=== PATIENT | female | born 1950 | race Caucasian/White ===

== ENCOUNTER 2018-07-21 12:14 | Emergency (ER) | payer MEDICARE ==
[2018-07-21] MEDS ORDERED: Acetaminophen / Codeine* #3 (300 MG/30 MG) TAB PO ONE (13:00)
--- NOTE | 2018-07-21 13:00 | ED ---
Upper Extremity Pain - HPI Summary HPI Summary: 67 year old F presenting to [facility] accompanied by family member with a chief complaint of left shoulder pain s/p tripping over tree stump, landing on her left side, hitting her left side on gravel parking lot last night after which she states she needed help getting up. The patient rates the pain 10/10 in severity. Symptoms aggravated by nothing. Symptoms alleviated by nothing. Patient reports left-sided rib pain. Patient reports mid-sternal chest pain. Last night, patient had headache, diaphoresis, and fever but these have since resolved. Patient denies left lower extremity and left hip pain. She denies loss of consciousness. She denies nausea, confusion, disorientation. 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 - History of Current Complaint Chief Complaint: EDExtremityUpper Stated Complaint: FALL SHOULER INJURY Time Seen by Provider: 07/21/18 12:52 Hx Obtained From: Patient Mechanism Of Injury: Other - tripping over tree stump, landing on her left side , hitting her left side on gravel parking lot last night after which she states she needed help getting up Onset/Duration: Started Days Ago - 1, Still Present Timing: Constant Severity Currently: Severe Pain Location: Other: - left shoulder, left rib, mid-sternal chest Aggravating Factor(s): Nothing Alleviating Factor(s): Nothing Associated Signs & Symptoms: Positive: Other - left-sided rib pain, mid-sternal chest pain; NEGATIVE: left lower extremity and left hip pain, loss of consciousness, nausea, confusion, disorientation - Allergies/Home Medications Allergies/Adverse Reactions: Allergies Allergy/AdvReac Type Severity Reaction Status Date / Time bupropion Allergy Palpitation Verified 07/21/18 12:22 s celecoxib Allergy Hives Verified 07/21/18 12:22 meperidine Allergy GI Upset Verified 07/21/18 12:22 rofecoxib Allergy Hives Verified 07/21/18 12:22 PMH/Surg Hx/FS Hx/Imm Hx Previously Healthy: No Endocrine/Hematology History: Reports: Hx Diabetes Cardiovascular History: Reports: Hx Hypertension - meds Respiratory History: Reports: Hx Sleep Apnea Denies: Hx Asthma GI History: Reports: Hx Gastroesophageal Reflux Disease Musculoskeletal History: Reports: Hx Arthritis - RA, Hx Orthopedic Injury - ( right) shoulder/elbow fx Denies: Hx Osteoporosis Sensory History: Reports: Hx Contacts or Glasses - BOTH Denies: Hx Hearing Aid Opthamlomology History: Reports: Hx Contacts or Glasses - BOTH Psychiatric History: Reports: Hx Anxiety, Hx Depression - Cancer History Hx Chemotherapy: No Hx Radiation Therapy: No - Surgical History Surgery Procedure, Year, and Place: APPY, CHOLECYSTECTOMY 1978, LUNG BENIGN TUMOR REMOVED 1971, RIGHT ELBOW AND SHOULDER SX 2006 [facility] Hx Anesthesia Reactions: No Infectious Disease History: No Infectious Disease History: Denies: Traveled Outside the [place] in Last 30 Days - Social History Alcohol Use: Occasionally Hx Substance Use: Yes Substance Use Type: Reports: Other - Xanax PRN anxiety Hx Tobacco Use: No Smoking Status (MU): Never Smoked Tobacco Have You Smoked in the Last Year: No Review of Systems Negative: Nausea Musculoskeletal: Negative - left lower extremity and left hip pain Positive: Other - left shoulder pain, left-sided rib pain, mid-sternal chest pain Neurological: Negative - loss of consciousness, confusion, disorientation All Other Systems Reviewed And Are Negative: Yes Physical Exam - Summary Physical Exam Summary: Appearance: Well-appearing, Well-nourished, lying in bed comfortable Skin: Warm, dry, no obvious rash Eyes: sclera anicteric, no conjunctival pallor ENT: mucous membranes moist Neck: deferred Respiratory: No signs of respiratory distress Cardiovascular: Appears well perfused, pulses are nml Abdomen: deferred Musculoskeletal: There is tenderness in the lower cervical spine and upper back. There is tenderness in the left shoulder with marked and limited ROM due to pain. The tenderness extends down the left arm and to the left elbow. The patient is unable to flex her left elbow without significant pain. There is no focal point tenderness in the chest. Neurological: Awake and alert, mentation is normal, speech is fluent and appropriate Psychiatric: affect is normal, does not appear anxious or depressed Triage Information Reviewed: Yes Vital Signs On Initial Exam: Initial Vitals Temp Pulse Resp BP Pulse Ox 99.4 F 93 16 154/91 95 07/21/18 12:15 07/21/18 12:15 07/21/18 12:15 07/21/18 12:15 07/21/18 12:15 Vital Signs Reviewed: Yes Diagnostics - Vital Signs Vital Signs Temp Pulse Resp BP Pulse Ox 07/21/18 12:15 99.4 F 93 16 154/91 95 - Laboratory Lab Statement: Any lab studies that have been ordered have been reviewed, and results considered in the medical decision making process. - Radiology Left shouler x-ray Radiology Interpretation Completed By: Radiologist Summary of Radiographic Findings: FRACTURE OF THE PROXIMAL LEFT HUMERUS. ED physician has reviewed this report. Left elbow x-ray Radiology Interpretation Completed By: Radiologist Summary of Radiographic Findings: WHILE THERE IS NO DISPLACED FRACTURE, THERE IS A SMALL JOINT EFFUSION. GIVEN THE HISTORY OF TRAUMA, THIS MAY INDICATE OCCULT FRACTURE. ED physician has reviewed this report. Left ribs with chest x-ray Radiology Interpretation Completed By: Radiologist Summary of Radiographic Findings: MINIMALLY DISPLACED FRACTURES OF THE LEFT FIFTH AND SIXTH RIBS WITHOUT APPRECIABLE PNEUMOTHORAX. ED physician has reviewed this report. - CT Cervical spine CT Interpretation Completed By: Radiologist Summary of CT Findings: DEGENERATIVE DISC DISEASE AND OSTEOARTHRITIS. NO ACUTE OSSEOUS INJURY TO THE CERVICAL SPINE. ED physician has reviewed this report. Re-Evaluation - Re-Evaluation First Eval Re-Evaluation Time: 14:33 Comment: Patient was given an update on her scan results Second Eval Re-Evaluation Time: 15:45 Comment: Discussed disposition plan with patient. She is agreeable to discharge. Course/Dx - Course Course Of Treatment: 67 year old F presenting to [facility] accompanied by family member with a chief complaint of left shoulder pain s/p tripping over tree stump , landing on her left side, hitting her left side on gravel parking lot last night after which she states she needed help getting up. The patient rates the pain 10/10 in severity. Symptoms aggravated by nothing. Symptoms alleviated by nothing. Patient reports left-sided rib pain. Patient reports mid-sternal chest pain. Last night, patient had headache, diaphoresis, and fever but these have since resolved. Patient denies left lower extremity and left hip pain. She denies loss of consciousness. She denies nausea, confusion, disorientation. 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 Physical exam findings: There is tenderness in the lower cervical spine and upper back. There is tenderness in the left shoulder with marked and limited ROM due to pain. The tenderness extends down the left arm and to the left elbow. The patient is unable to flex her left elbow without significant pain. There is no focal point tenderness in the chest. Left shoulder x-ray reveals, per radiologist, FRACTURE OF THE PROXIMAL LEFT HUMERUS. Left elbow x-ray reveals, per radiologist, WHILE THERE IS NO DISPLACED FRACTURE, THERE IS A SMALL JOINT EFFUSION. GIVEN THE HISTORY OF TRAUMA, THIS MAY INDICATE OCCULT FRACTURE. Left ribs with chest x-ray reveals, per radiologist, MINIMALLY DISPLACED FRACTURES OF THE LEFT FIFTH AND SIXTH RIBS WITHOUT APPRECIABLE PNEUMOTHORAX. CT Cervical spine reveals, per radiologist, DEGENERATIVE DISC DISEASE AND OSTEOARTHRITIS. NO ACUTE OSSEOUS INJURY TO THE CERVICAL SPINE. In the ED course, the patient was given Tylenol/Codeine. Patient will be discharged with follow up from Dr. Flynn, primary care provider , in 1 week. The patient is agreeable with this plan. - Diagnoses Provider Diagnoses: Proximal humeral fracture, Left rib fracture Discharge - Sign-Out/Discharge Documenting (check all that apply): Patient Departure - Discharge Patient Received Moderate/Deep Sedation with Procedure: No - Discharge Plan Condition: Good Disposition: HOME Prescriptions: oxyCODONE/Acetamin 5/325 MG* [Percocet 5/325 TAB*] 1 tab PO Q4H PRN #20 tab MDD 6 PRN Reason: Pain Patient Education Materials: Rib Fracture (ED), Fall Prevention for Older Adults (ED), Proximal Humerus Fracture (ED) Referrals: Fabio Flynn MD [Primary Care Provider] - 1 Week (if not feeling better) - Billing Disposition and Condition Condition: GOOD Disposition: Home - Attestation Statements Document Initiated by Richy: Yes Documenting Scribe: Sandra Moreno Provider For Whom Richy is Documenting (Include Credential): Royal Wolfe MD Scribe Attestation: Sandra Tamayo, scribed for Royal Wolfe MD on 07/21/18 at 2201. Scribe Documentation Reviewed: Yes Provider Attestation: The documentation as recorded by the Sandra gallardo accurately reflects the service I personally performed and the decisions made by me, Royal Wolfe MD Status of Scribe Document: Viewed
[2018-07-21 15:48] VITALS: BP 116/76
== END 2018-07-21 15:46 | disposition home or self-care (01) ==
LOC: ED 12:14
DX: S42.212A Unspecified displaced fracture of surgical neck of left humerus, initial encounter for closed fracture (principal); S22.42XA Multiple fractures of ribs, left side, initial encounter for closed fracture; M25.422 Effusion, left elbow; W18.09XA Striking against other object with subsequent fall, initial encounter; Y92.481 Parking lot as the place of occurrence of the external cause; M50.30 Other cervical disc degeneration, unspecified cervical region; M47.812 Spondylosis without myelopathy or radiculopathy, cervical region; E11.9 Type 2 diabetes mellitus without complications; I10 Essential (primary) hypertension; M06.9 Rheumatoid arthritis, unspecified; F41.9 Anxiety disorder, unspecified; Z88.5 Allergy status to narcotic agent; Z88.8 Allergy status to other drugs, medicaments and biological substances
CPT/HCPCS: 72125; 99282; A9270-GY

== ENCOUNTER 2024-01-01 00:35 | Observation (INO) ==
[2024-01-01] MEDS: methylPREDNISolone SOD SUCC 125 mg 2 ML VIAL IV ONE (00:51)
[2024-01-01] MEDS: EPINEPHrine Anaphylaxis SYR CERTADOSE SYR KIT IM ONE (01:03)
[2024-01-01] MEDS: Lactated Ringers 1000 ml BAG 1,000 ML IV ONE (01:06)
[2024-01-01 01:21] LABS: ABS Basophils 0.1 10^3/uL (0.0-0.1); ABS Eosinophils 0.4 10^3/uL (0.0-0.5); ABS Lymphocytes 4.8 10^3/uL (1.0-4.8); ABS Neutrophils 6.4 10^3/uL (1.5-7.6); ABS Nucleated RBC 0.02 10^3/ul; Eosinophil % 3.1 %; Hematocrit 43.2 % (35-45); Hemoglobin 14.8 g/dL (11.5-14.3); Mean Corpuscular Hemoglobin 30.5 pg (27-33); Mean Corpuscular Hgb Conc 34.4 g/dL (31-36); Mean Corpuscular Volume 88.7 fL (80-97); Mean Platelet Volume 8.5 fL (7.5-11.2); Nucleated Red Blood Cells % 0.1 %/100WBC (0.0-0.8); Platelet Count 315 10^3/uL (150-450); Red Blood Count 4.86 10^6/uL (3.63-4.92); Red Cell Distribution Width 14.9 % (12-17); White Blood Count 12.7 10^3/uL (3.8-11.8)
[2024-01-01] MEDS: Glycopyrrolate IV 0.2 MG/ML 1 ML VIAL IV SLOW PU ONE (01:31)
[2024-01-01 02:02] LABS: ALT 21 U/L (7-52); Albumin 4.2 g/dL (3.2-5.2); Albumin/Globulin Ratio 1.5 (1-3); Alkaline Phosphatase 60 U/L (35-149); Anion Gap 10 mmol/L (2-16); Blood Urea Nitrogen 15 mg/dL (6-24); CO2 Carbon Dioxide 29 mmol/L (22-32); Calcium 9.4 mg/dL (8.6-10.3); Chloride 99 mmol/L (101-111); Globulin 2.8 g/dL (2-4); Glucose 104 mg/dL (70-100); Sodium 138 mmol/L (135-145); Total Bilirubin 0.7 mg/dL (0.2-1.0); eGFR CKD-EPI 58.8 (>60)
[2024-01-01] MEDS: Benzocaine/Butamben/Tetracain (CETACAINE - SINGLE USE) 5 gm TOPICAL ONE (05:14)
[2024-01-01] MEDS ORDERED: Dextrose 50% Syringe 50 ml 25 GM/50 ML SYRINGE IV PUSH PRN (05:20)
[2024-01-01] MEDS: Enoxaparin 40 MG/0.4 ML SYR SUBCUT SCH (06:32)
[2024-01-01 08:50] LABS: Hematocrit 39.4 % (35-45); Hemoglobin 13.5 g/dL (11.5-14.3); Mean Corpuscular Hemoglobin 30.1 pg (27-33); Mean Corpuscular Hgb Conc 34.3 g/dL (31-36); Mean Corpuscular Volume 87.8 fL (80-97); Platelet Count 242 10^3/uL (150-450); Red Blood Count 4.48 10^6/uL (3.63-4.92); Red Cell Distribution Width 14.6 % (12-17); White Blood Count 7.8 10^3/uL (3.8-11.8)
[2024-01-01 09:22] LABS: Calcium 9.3 mg/dL (8.6-10.3); Creatinine, Serum 0.88 mg/dL (0.51-0.95); Magnesium 1.8 mg/dL (1.9-2.7); Potassium 3.9 mmol/L (3.5-5.0); Potassium Redraw 3.8 mmol/L (3.5-5.0); eGFR CKD-EPI 68.5 (>60)
[2024-01-01] MEDS: Lactated Ringers 1000 ml BAG 1,000 ML IV SCH (10:12)
[2024-01-01] MEDS: Pantoprazole VIAL 40 MG VIAL IV SCH (10:14)
[2024-01-01] MEDS: Benzocaine/Menthol LOZ MT PRN (18:02)
[2024-01-02 09:27] LABS: Hematocrit 41.3 % (35-45); Hemoglobin 13.9 g/dL (11.5-14.3); Mean Corpuscular Hemoglobin 30.1 pg (27-33); Mean Corpuscular Hgb Conc 33.7 g/dL (31-36); Mean Corpuscular Volume 89.2 fL (80-97); Red Blood Count 4.63 10^6/uL (3.63-4.92); Red Cell Distribution Width 14.8 % (12-17); White Blood Count 12.6 10^3/uL (3.8-11.8)
[2024-01-02 09:43] LABS: Anion Gap 11 mmol/L (2-16); Blood Urea Nitrogen 18 mg/dL (6-24); CO2 Carbon Dioxide 27 mmol/L (22-32); Calcium 9.9 mg/dL (8.6-10.3); Chloride 102 mmol/L (101-111); Creatinine, Serum 0.95 mg/dL (0.51-0.95); Glucose 95 mg/dL (70-100); Magnesium 1.9 mg/dL (1.9-2.7); Sodium 140 mmol/L (135-145); eGFR CKD-EPI 62.5 (>60)
[2024-01-02 10:31] LABS: ABS Basophils 0.2 10^3/uL (0.0-0.1); ABS Eosinophils 0.2 10^3/uL (0.0-0.5); ABS Neutrophils 7.3 10^3/uL (1.5-7.6); ABS Nucleated RBC 0.01 10^3/ul; Eosinophil % 1.5 %; Lymphocyte % 31.6 %; Mean Platelet Volume 8.7 fL (7.5-11.2); Nucleated Red Blood Cells % 0.1 %/100WBC (0.0-0.8); Platelet Count 233 10^3/uL (150-450)
[2024-01-03 06:00] LABS: ABS Eosinophils 0.1 10^3/uL (0.0-0.5); ABS Lymphocytes 2.7 10^3/uL (1.0-4.8); ABS Monocytes 0.7 10^3/uL (0.0-0.9); ABS Neutrophils 5.8 10^3/uL (1.5-7.6); Eosinophil % 0.8 %; Hematocrit 36.4 % (35-45); Hemoglobin 12.4 g/dL (11.5-14.3); Lymphocyte % 28.9 %; Mean Corpuscular Hemoglobin 30.3 pg (27-33); Mean Corpuscular Hgb Conc 33.9 g/dL (31-36); Mean Corpuscular Volume 89.2 fL (80-97); Mean Platelet Volume 8.7 fL (7.5-11.2); Platelet Count 227 10^3/uL (150-450); Red Blood Count 4.08 10^6/uL (3.63-4.92); Red Cell Distribution Width 14.4 % (12-17); White Blood Count 9.4 10^3/uL (3.8-11.8)
[2024-01-03 06:20] LABS: Calcium 9.2 mg/dL (8.6-10.3); Creatinine, Serum 0.92 mg/dL (0.51-0.95); Magnesium 1.8 mg/dL (1.9-2.7); Potassium 4.1 mmol/L (3.5-5.0); eGFR CKD-EPI 64.9 (>60)
[2024-01-03] MEDS: Magnesium Sulfate 2 gm BAG 2 GM/50 ML BAG IVPB ONE (09:01)
[2024-01-03 13:30] VITALS: BP 110/68
== END 2024-01-03 16:00 | disposition home or self-care (01) ==
LOC: ED 00:35 → EDHOLD 01:27 → SUATTDRO 01:27 → INTOOBSV 01:27 → ICU 05:28 → MED 15:58
PROVIDERS: ADMIT Internal Medicine Critical Care Medicine; ATTEND Hospitalist